=== PATIENT | female | born 1990 | race Caucasian/White ===

== ENCOUNTER 2022-09-13 07:23 | Outpatient (CLI) | payer OTHER, SELFPAY ==
[2022-09-13] VITALS (45 sets, daily range): BP systolic 98–136; BP diastolic 51–92; PULSE 60–103; RESP 16; TEMP 36.4; O2SAT 97–100; BMI 28.9
--- NOTE | 2022-09-13 08:17 | US_ITS ---
WS: [id number] BIOPHYSICAL PROFILE AMNIOTIC FLUID HISTORY: Vaginal bleeding for 2 hours. COMPARISON: No prior studies. position: Vertex. Cardiac activity: 141 bpm. Cervix: closed. Placenta: Posterior, no previa or abruption. Placenta ends approximately 5 cm above the internal cerv ical os. Placenta grade: 2 Parameters are as follows: Breathin Movement: 2 Tone: 2 Fluid volume: 2 Single deep vertical pocket of amniotic fluid is 4.9 cm. There are several normal pockets of amniotic fluid scattered throughout the uterine cavity. US/US OB BPP wo NST 56035 IMPRESSION: 1. Biophysical profile score: 8/8. 2. Normal amniotic fluid. 3. Posterior placenta. No abruption or previa. 4. Normal cardiac activity.
[2022-09-13] MEDS: lactated ringers 1,000 ML 999 ML IV (08:27)
[2022-09-13] MEDS: terbutaline 1 mg/mL INJ 0.25 MG SUBCUT ×2 (08:29→10:09)
[2022-09-13 09:51] LABS: Basophils % 0.3 %; Eosinophils # 0.1 10^3/uL (0.0-0.8); Eosinophils % 0.5 %; Lymphocytes # 2.1 10^3/uL (0.8-4.8); Lymphocytes % 17.8 %; Mean Corpuscular HGB Conc 32.4 g/dL (30.0-36.0); Mean Corpuscular Hemoglobin 29.3 pg (28.0-34.0); Mean Corpuscular Volume 90.7 fl (81-99); Mean Platelet Volume 10.6 fL (7.4-10.4); Monocytes # 0.7 10^3/uL (0.2-0.9); Monocytes % 5.7 %; Neutrophils # 8.92 10^3/uL (1.8-7.7); Neutrophils % 75.4 %; Nucleated Red Blood Cells % 0 %; Platelet Count 212 10^3/cmm (130-400); Red Blood Count 3.75 10^6/uL (4.1-5.3); White Blood Count 11.8 10^3/uL (4.0-10.0)
[2022-09-13 09:54] LABS: Actim Prom Positive
[2022-09-13] MEDS: dextrose 5%-lactated ringers 1,000 ML 125 ML IV (10:09)
[2022-09-13] MEDS: ampicillin 2,000 MG in sodium chloride 0.9% (plus) 50 ML 100 MG IV (10:09)
[2022-09-13] MEDS: betamethasone susp 6 mg/mL 5 mL 12 MG IM (10:11)
--- NOTE | 2022-09-13 11:14 | PM.OBTRLD ---
OB L&D Triage Visit Information: Date of evaluation: 09/13/22 Comments/Additional reason(s) for visit: 32-year-old female with an estimated gestational age at 32 weeks +1-day. Came to labor and delivery referring vaginal bleeding and irregular contractions. Upon evaluation OB ultrasound rule out abruption biophysical Profile Report Breathing Movements: 2 Gross Body Movement: 2 Tone: 2 Amniotic Fluid Volume: 2 NST: 2 Biophysical Profile: 12/17 Pelvic exam fingertip/not dilated/not effaced. Actim PROM positive for premature rupture of membranes. Treated with tocolysis, corticosteroids and antibiotics. Patient was counseled regarding findings of premature rupture membranes and due to prematurity recommendation for transfer to higher level of care facility. She elected to be transferred to [facility]. [facility] was contacted OB hospitalist Dr. Chacon accepted the patient. Evaluation: station: -5 Laboratory results: Laboratory Tests 09/13/22 09/13/22 09/13/22 08:25 08:25 08:25 WBC 11.8 H RBC 3.75 L Hgb 11.0 L Hct 34.0 L MCV 90.7 MCH 29.3 MCHC 32.4 RDW 13.0 Plt Count 212 MPV 10.6 H Neut % (Auto) 75.4 Lymph % (Auto) 17.8 Churchill % (Auto) 5.7 Eos % (Auto) 0.5 Baso % (Auto) 0.3 Neut # (Auto) 8.92 H Lymph # (Auto) 2.1 Churchill # (Auto) 0.7 Eos # (Auto) 0.1 Baso # (Auto) 0.0 Nucleated RBC % (a uto) 0 Nucleated RBCs # 0.0 Insulin-like GF I Positive Blood Type O Positive Rho(D) Type Positive Antibody Screen Negative Vital signs: Vital Signs - 24 hr 09/13/22 07:54 09/13/22 08:23 09/13/22 08:29 Pulse Rate 73 60 67 Blood Pressure 127/80 131/76 Pulse Oximetry 99 09/13/22 08:34 09/13/22 08:39 09/13/22 08:39 Pulse Rate 75 89 81 Blood Pressure 128/75 Pulse Oximetry 100 100 09/13/22 08:44 09/13/22 08:49 09/13/22 08:54 Pulse Rate 80 93 93 Blood Pressure Pulse Oximetry 100 100 100 09/13/22 08:59 09/13/22 08:59 09/13/22 09:04 Pulse Rate 91 97 75 Blood Pressure 136/92 Pulse Oximetry 100 100 09/13/22 09:09 09/13/22 09:14 09/13/22 09:19 Pulse Rate 85 76 78 Blood Pressure 124/65 Pulse Oximetry 100 100 100 09/13/22 09:24 09/13/22 09:29 09/13/22 09:34 Pulse Rate 75 71 79 Blood Pressure Pulse Oximetry 99 100 100 09/13/22 09:39 09/13/22 09:39 09/13/22 09:44 Pulse Rate 79 76 85 Blood Pressure 119/56 Pulse Oximetry 100 100 09/13/22 09:49 09/13/22 09:54 09/13/22 09:59 Pulse Rate 71 88 83 Blood Pressure 125/81 Pulse Oximetry 99 98 99 09/13/22 09:59 09/13/22 10:04 09/13/22 10:09 Pulse Rate 79 77 76 Blood Pressure Pulse Oximetry 100 100 09/13/22 10:14 09/13/22 10:19 09/13/22 10:24 Pulse Rate 78 75 78 Blood Pressure 115/66 Pulse Oximetry 100 100 100 09/13/22 10:29 09/13/22 10:34 09/13/22 10:39 Pulse Rate 78 87 74 Blood Pressure 110/72 Pulse Oximetry 99 99 100 09/13/22 10:39 09/13/22 10:44 09/13/22 10:49 Pulse Rate 85 103 H 87 Blood Pressure Pulse Oximetry 100 100 09/13/22 10:54 09/13/22 10:59 09/13/22 10:59 Pulse Rate 96 81 84 Blood Pressure 117/58 Pulse Oximetry 100 100 09/13/22 11:04 09/13/22 11:09 Pulse Rate 84 97 Blood Pressure Pulse Oximetry 100 100 Final Diagnosis Final Diagnosis (1) premature rupture of membranes in third trimester: Plan: Transfer to [facility] Status: Acute Code(s): O42.913 - premature rupture of membranes, unspecified as to length of time between rupture and onset of labor, third trimester Coding Level of Care Code Acute Code for Chg Fwd Diagnoses premature rupture of membranes in third trimester O42.913
== END 2022-09-13 12:04 | disposition intermediate care facility (04) ==
LOC: OPOB 07:46 → OBGYN 07:47
PROVIDERS: Visit Provider Obstetrics & Gynecology
DX: O42.913 Preterm premature rupture of membranes, unspecified as to length of time between rupture and onset of labor, third trimester (principal); Z3A.32 32 weeks gestation of pregnancy
CPT/HCPCS: 36415; 59025; 76819; 84112; 85025; 86850; 86900; 96372; 99211; J0290; J0702; J3105; J7120; J7121